=== PATIENT | male | born 1955 | race Caucasian/White ===

== ENCOUNTER → 2022-11-03 08:28 | Outpatient (BNVA) | payer SELFPAY | PROVIDERS: PCP Family Medicine; Visit Provider Family Medicine | DX: Z00.00 Encounter for general adult medical examination without abnormal findings (principal) | CPT/HCPCS: 80053; 80061 ==

== ENCOUNTER → 2023-10-12 13:57 | Outpatient (BNVA) | payer MEDICARE, SELFPAY | PROVIDERS: PCP Family Medicine; Visit Provider Nurse Practitioner | DX: M25.831 Other specified joint disorders, right wrist (principal); M25.531 Pain in right wrist | CPT/HCPCS: 73110 ==